=== PATIENT | male | born 1950 | race Caucasian/White ===

== ENCOUNTER 2016-12-22 04:19 | Day surgery (SDC) | payer BC ==
[2016-12-19 11:13] LABS: HEMATOCRIT 40.5 % (40.0-51.0); HEMOGLOBIN 13.6 g/dL (13.6-17.8)
[2016-12-19 11:30] LABS: CALCIUM, SERUM 9.2 MG/DL (8.5-10.4); CHLORIDE, SERUM 101 MMOL/L (96-112); CO2 (CARBON DIOXIDE) 26 MMOL/L (24-34); GFR AFRICAN AMERICAN 81 ML/MIN (>=60); GFR NON AFRICAN AMERICAN 70 ML/MIN (>=60); POTASSIUM, SERUM 4.3 MMOL/L (3.5-5.3)
[2016-12-19 11:31] LABS: BUN (BLOOD UREA NITROGEN) 13 MG/DL (6-23); GLUCOSE, SERUM 266 MG/DL (60-99); SODIUM, SERUM 138 MMOL/L (135-148)
--- NOTE | ~2016-12-22 | OP ---
Record Of Operation [facility] [address] [place]. [address] NAME: SIMIN ELLINGTON JR : 52 STATUS : REG [facility] [place] PAT#: [id number] AGE: 66 ADM/REG DATE : 12/22/16 MR#: [id number] REPORT SERV DATE: 12/22/16 DICTATED BY: ALEX MCKNIGHT DATE: 12/22/16 REPORT STATUS : Draft TRANSCRIBED BY: MODL DATE: 12/22/16 DATE OF PROCEDURE: 12/22/2016 PREOPERATIVE DIAGNOSIS: Left L4-5 radiculopathy secondary to lateral recess spinal stenosis and left-sided disk protrusion. POSTOPERATIVE DIAGNOSIS: Left L4-5 radiculopathy secondary to lateral recess spinal stenosis and left-sided disk protrusion. PROCEDURE: 1. Microscopic navigation-assisted surgery. 2. Left L4-5 hemilaminotomy, foraminotomy, and microdiskectomy. AERIAL PHOTOGRAPH INTERPRETER: Juan Obrien. ANESTHESIA: General. BLOOD LOSS: 10 mL. INDICATIONS FOR SURGERY: This is a 66-year-old male, who has had a previous fusion at L5-S1. He has done very well with that, but he had some residual left leg pain that has not resolved. We have been through a complete workup and found that he does have a disk protrusion with narrowing of the lateral recess. There was also ligamentum flavum hypertrophy, and a combination of the lateral recess stenosis and the disk protrusions is causing rather marked L5 radiculopathy. He tried conservative care with exercises, physical therapy, injections, etc., but that failed and he is now brought to surgery for the above procedure. Prior to surgery, risks, benefits, alternatives, and expectations were explained. Consent form has been signed. Also please note, because of the complexity of surgery and the need to identify correct level of surgery intraoperatively as well as desire to carry out the safest and most precise dissection, I felt that intraoperative navigation was mandatory. DESCRIPTION OF PROCEDURE: The patient was brought to the operative suite. General anesthetic including endotracheal intubation was administered. The patient was placed prone on a Lucas spine frame. Bony prominences were carefully padded. Thoracolumbar spine scrubbed with Hibiclens solution. DuraPrep was painted. Sterile drapes were applied. A small stab wound was carried out at a right posterior superior iliac spine. A percutaneous pin with navigational frame attached was inserted in the PSIS. Intraoperative CT scan with O-arm was obtained. CT information was used to register the navigational system. With navigational assistance, I identified the L4-5 level. Just left of midline, a 2 cm skin incision was carried out. A blunt navigated probe was placed through the fascia muscle and docked over the interlaminar space. Muscle dilators were inserted followed by placement Record Of Operation [facility] [id number] [place]. [address] NAME: SIMIN ELLINGTON JR : 52 STATUS : REG [facility] [place] PAT#: [id number] AGE: 66 ADM/REG DATE : 12/22/16 MR#: [id number] REPORT SERV DATE: 12/22/16 DICTATED BY: ALEX MCKNIGHT DATE: 12/22/16 REPORT STATUS : Draft TRANSCRIBED BY: JENNIFER DATE: 12/22/16 of a tubular retractor, attached to an arm mount on the table. The microscope was sterilely draped and used throughout the remainder of the procedure. With navigational assistance, I identified the amount of lamina of the L4. I wanted to remove in order to reach the cephalad boundary to the disk space. I also determined the amount of medial facet joint and I needed to remove in order to reach the lateral aspect of the thecal sac. I used a 3 mm dre bur and removed 50% of the lamina of L4 and approximately 5%-10% of superior lamina of L5 and about 20% of medial facet joint. The lateral ligamentum flavum was densely hypertrophied and was removed with pituitary and Kerrison rongeurs. The thecal sac was then gently retracted toward the midline. A moderate sized disk herniation was removed with pituitary rongeurs. Afterwards, no further compression by either disk, bone, or ligament was noted. The wound was irrigated. The retractor was removed. No bleeding was noted. The myofascial layer was closed with a single interrupted #1 Vicryl suture. The subcutaneous tissue was closed with Vicryl sutures, 2-0 vertical mattress nylon suture used for skin closure, and sterile dressings applied. The patient returned to supine position, awakened, extubated, and taken to recovery room in satisfactory condition having tolerated procedure well. Sponge, needle, and instrument counts were correct. No intraoperative complications noted. TAVO/JENNIFER Alex Mcknight D.O. / [id number] CC: Brianne Burt M.D.
[~2016-12-22 04:19] MED LIST: AMB10 PO; AMBIEN CR12.5 MG PO; ASAB PO; ASACOL HD800 MG PO; BETA BLOCKER; BYSTOLIC10 MG PO; CRESTOR20 MG PO; ENDOCET1 TA1 PO; ENTOCORT3 PO; EYE DROP; ISTALOL0.5 % OP; LEVSINTAB PO; LIALDA1.2 GM PO; METHOC500B PO; MULTIPLE VIT PO; NEUR100 PO; NORCO1 TA1 PO; NORCO1 TA2 PO; OXYCOD PO; PRADAXA150 MG PO; PRILO PO; PRILOSEC; PRIN10 PO; XALAT OPH; XARELTO PO; XARELTO20 MG PO; ZESTORETIC PO
== END 2016-12-22 15:39 | disposition home or self-care (01) ==
LOC: SDC 04:19
PROVIDERS: Orthopaedic Surgery Orthopaedic Surgery of the Spine
PROC: 0SB20ZZ Excision of Lumbar Vertebral Disc, Open Approach (ICD-10-PCS; principal; 2016-12-22 05:45)
PROC: 01NB0ZZ Release Lumbar Nerve, Open Approach (ICD-10-PCS; 2016-12-22 05:45)
DX: M48.06 Spinal stenosis, lumbar region (principal); M51.16 Intervertebral disc disorders with radiculopathy, lumbar region; I10 Essential (primary) hypertension; I73.9 Peripheral vascular disease, unspecified; E78.00 Pure hypercholesterolemia, unspecified; K21.9 Gastro-esophageal reflux disease without esophagitis; K51.90 Ulcerative colitis, unspecified, without complications; K57.92 Diverticulitis of intestine, part unspecified, without perforation or abscess without bleeding; F17.210 Nicotine dependence, cigarettes, uncomplicated; G47.33 Obstructive sleep apnea (adult) (pediatric); H40.9 Unspecified glaucoma; Z86.718 Personal history of other venous thrombosis and embolism; Z87.442 Personal history of urinary calculi; Z91.041 Radiographic dye allergy status; Z88.8 Allergy status to other drugs, medicaments and biological substances; Z88.5 Allergy status to narcotic agent; Z96.1 Presence of intraocular lens; Z98.41 Cataract extraction status, right eye; Z98.42 Cataract extraction status, left eye; Z90.49 Acquired absence of other specified parts of digestive tract; Z98.1 Arthrodesis status; Z79.01 Long term (current) use of anticoagulants; Z79.899 Other long term (current) drug therapy; Z98.890 Other specified postprocedural states
CPT/HCPCS: 80048; 82962; 85014; 85018; 88304; 88311; 93005; A9270-GY; J0690; J1885; J2250; J2274; J2405; J2710; J3010